=== PATIENT | male | born 1995 | race Hispanic/Latino ===

== ENCOUNTER 2020-03-22 10:57 | Emergency (ER) | payer SELFPAY ==
[2020-03-22 11:57] LABS: Bilirubin Negative (Negative); Blood, Urine Negative (Negative); Clarity Clear (Clear); Glucose, Urine (Dipstick) Negative (Negative); Ketone, Urine Negative (Negative); Leukocyte Negative (Negative); Nitrite Negative (Negative); Protein, Urine (Dipstick) Negative (Neg-Trace); Urobilinogen 0.2 mg/dL (Less than 2)
== END 2020-03-22 12:18 | disposition home or self-care (01) ==
LOC: MADERS 10:57
DX: T67.5XXA Heat exhaustion, unspecified, initial encounter (principal); R51 Headache; Z87.891 Personal history of nicotine dependence
CPT/HCPCS: 81003; 99284